=== PATIENT | female | born 1980 ===

== ENCOUNTER 2025-03-27 07:00 | Day surgery (SDC) | payer OTHER ==
[2025-03-21 09:03] VITALS: BP 108/64
[2025-03-21 10:03] LABS: URINE APPEARANCE Clear; URINE BILIRRUBIN Negative (NEGATIVE); URINE BLOOD Small; URINE COLOR Yellow; URINE GLUCOSE Negative (NEGATIVE); URINE KETONE Negative (NEGATIVE); URINE LEUKOCYTE Negative; URINE NITRATE Negative; URINE PROTEIN Negative (NEGATIVE); URINE UROBILINOGEN 0.2 E.U./dl
[2025-03-21 10:08] LABS: URINE BACTERIA 68.3 uL (0.0-1933); URINE EPITHELIAL CELLS 15.0 uL (0.0-38.8); URINE RBC 27.4 uL (0.0-20.8); URINE WBC 5.9 uL (0.0-23.2)
[2025-03-21 10:11] LABS: URINE CAST 0.73 uL (0.0-1.40)
[2025-03-21 10:13] LABS: ALT/SGPT 13.0 U/L (12-78); AST/SGOT 6.0 U/L (15-37); BILIRUBIN TOTAL 0.48 mg/dL (0.3-1.2); BUN CREA RATIO 16.0 (7.0-25.0); CREATININE SERUM 0.69 mg/dL (0.55-1.02); GFR 92.86; GLOBULINA 3.2 G/DL (2.4-3.5); GLUCOSE FASTING 97.0 mg/dL (65-100); OSMOLALITY SERUM 282.0 MOSM/KG (275-295)
[2025-03-21 10:28] LABS: INR 1.04
[2025-03-21 10:33] LABS: BASO % 0.8 % (0.1-1.2); EOS # 0.21 (0.04-0.54); EOS % 4.4 % (0.7-7.0); LYMPH # 1.92 (1.18-3.74); LYMPH % 40.3 % (19.3-53.1); MEAN PLATELET VOLUME 11.60 fl (9.4-12.4); MONO # 0.38 (0.24-0.82); MONO % 8.0 % (4.7-12.5); NEUT # 2.20 (1.56-6.13); NEUT % 46.3 % (34.0-71.1); RED CELL DISTRIBUTION WIDTH 13.7 % (11.6-14.4)
[~2025-03-27] VITALS: Ht 165.1 cm; Wt 82.1 kg
[2025-03-27] MEDS ORDERED: POVIDONE-IODINE 118 ML BOTT TOP ONE (08:43)
[2025-03-27] MEDS ORDERED: ONDANSETRON HCL 2 MG/ML VIAL IV PRN (13:45)
[2025-03-27] MEDS ORDERED: RINGERS SOLUTION,LACTATED 1,000 ML IV SCH (13:45)
[2025-03-27] MEDS ORDERED: FAMOTIDINE/PF 20 MG/2 ML VIAL IV ONE (13:45)
[2025-03-27] MEDS ORDERED: KETOROLAC TROMETHAMINE 30 MG VIAL IV PRN (13:45)
[2025-03-27] MEDS ORDERED: KETOROLAC TROMETHAMINE 30 MG VIAL ONE (14:09)
[2025-03-27] MEDS ORDERED: FAMOTIDINE/PF 20 MG/2 ML VIAL ONE (14:09)
== END 2025-03-27 16:25 | disposition home or self-care (01) ==
LOC: CIR.AMB 07:00
PROVIDERS: ATTEND General Practice
DX: N85.00 Endometrial hyperplasia, unspecified (principal); N93.8 Other specified abnormal uterine and vaginal bleeding